=== PATIENT | male | born 1940 | race Caucasian/White ===

== ENCOUNTER 2017-01-09 08:15 | Inpatient (IN) ==
[2017-01-09] MEDS ORDERED: Nitroglycerin 0.4 MG TAB.SUBL SL ONE ×2 (08:24→11:46)
--- NOTE | 2017-01-09 08:27 | Emergency Department Note ---
Disposition Clinical Impression: Chest pain Qualifiers: Chest pain type: unspecified Qualified Code(s): R07.9 - Chest pain, unspecified Disposition: Admitted As Inpatient Condition: Critical Time of Disposition: 09:59 Chest Pain HPI - General Chief Complaint: ED Chest Pain Stated Complaint: Chest pain Time Seen by Provider: 01/09/17 08:18 Source: patient, family, EMS Mode of arrival: EMS Vital Signs Reviewed: Yes Nursing Notes Reviewed: Yes - History of Present Illness HPI Narrative: Mr. Moses, a 76yo male, presents from home via EMS with chief complaint chest pain. Onset this morning at approximately 1 AM described as 10 out of 10 substernal chest soreness without radiation, associated with diaphoresis. No nausea. Over the past 1-2 days, patient casually notes he had similar episodes that spontaneously resolved and, "did not last very long"-lasted approximately 15 minutes per episode. Previously, patient never experienced similar chest pain. Past medical history: hypertension, hyperlipidemia. No history of acid reflux. Family history: Mother had cardiac disease at age greater than 65. Medications: Aspirin 81 mg, statin, amlodipine Patient received 4 baby aspirin and a single sublingual nitroglycerin and round. His chest pain improved from 10/10 to 5/10. - Related Data Home Medications Medication Instructions Recorded Confirmed Aspirin [Lo-Dose Aspirin EC] 81 mg PO DAILY 01/09/17 01/09/17 Pravastatin Sodium 20 mg PO DAILY 01/09/17 01/09/17 amLODIPine [Norvasc] 5 mg PO DAILY 01/09/17 01/09/17 Allergies Allergy/AdvReac Type Severity Reaction Status Date / Time No Known Allergies Allergy Verified 01/09/17 08:32 All systems ED: reviewed and negative except as stated. Constitutional: Denies: fever, chills, weakness Eyes: Denies: vision change Cardiovascular: Reports: chest pain. Denies: palpitations, dyspnea on exertion , edema, syncope, paroxysmal nocturnal dyspnea Respiratory: Denies: cough, dyspnea, wheezes Gastrointestinal: Denies: abdominal pain, nausea, vomiting, diarrhea, constipation Genitourinary: Denies: urgency, dysuria Musculoskeletal: Denies: back pain, neck pain Neurological: Denies: headache, weakness, numbness Hematological/Lymphatic: Denies: easy bleeding, easy bruising Physical Exam Vital signs reviewed. Patient hypertensive. General: Patient is alert, oriented, and in mild to moderate distress. HEENT: No facial asymmetry. Head is normocephalic and atraumatic. PERRLA, EOMI. Cardiovascular: Heart regular rate and rhythm without clicks, rubs, gallops, or murmurs. No JVD. PMI nondisplaced. Chest pain is not reproducible palpation. Respiratory: Symmetric chest rise with good respiratory effort. Bilateral breath sounds are clear without wheezing, crackles, or rhonchi. Abdomen: Bowel sounds present normoactive x-4 quadrants. Abdomen is soft, nondistended, and nontender. No organomegaly noted. Psych: Patient's affect is appropriate for situation. Course Course Narrative: Patient received full dose of aspirin by EMS in route. We will repeat nitroglycerin trial and perform cardiac workup. Patient's EKG is concerning for ST depression in lead 2, LBBB. No previous EKG for comparison. Troponin elevated 0.06. CP improved with SL nitro - no CP free. Continuing to monitor; no morphine given at this time. Patient accepted by Dr. Junior who requests ER cardiology consult. Vital Signs Temperature 98.0 F 01/09/17 08:16 Pulse Rate 78 01/09/17 08:16 Respiratory Rate 18 01/09/17 08:16 Blood Pressure 196/109 01/09/17 08:16 O2 Sat by Pulse Oximetry 96 01/09/17 08:16 Temperature 98.0 F 01/09/17 08:16 Pulse Rate 53 01/09/17 09:15 Respiratory Rate 18 01/09/17 09:15 Blood Pressure 147/88 01/09/17 09:15 O2 Sat by Pulse Oximetry 96 01/09/17 09:15 Oxygen Delivery Oxygen Delivery Nasal Cannula Chest Pain - Lab Data Result diagrams: 01/09/17 08:45 01/09/17 08:45 Lab Results 01/09/17 01/09/17 01/09/17 Range/Units 08:45 08:45 08:45 WBC 8.6 (4.3-11.1) K/mcL RBC 5.33 (4.19-5.50) M/mcL Hgb 16.0 (12.9-16.9) g/dL Hct 48.4 (37.5-50.1) % MCV 90.8 (83.0-100.0) fL MCH 30.0 (28.0-33.3) pg MCHC 33.1 (31.6-35.5) g/dL RDW 13.2 (11.5-14.5) % Plt Count 250 (140-400) K/mcL MPV 9.3 L (9.4-12.4) fL Immature Gran % 0.4 (0-4) % Seg Neutrophils % 66.0 % Lymphocytes % 21.6 % Monocytes % 6.8 % Eosinophils % 4.3 % Basophils % 0.9 % Neutrophils # 5.7 (1.6-8.9) K/mcL Lymphocytes # 1.9 (0.6-4.6) K/mcL Monocytes # 0.6 (0.0-1.3) K/mcL Eosinophils # 0.4 (0.0-0.6) K/mcL Basophils # 0.1 (0.0-0.2) K/mcL PT (9.4-12.1) Seconds INR APTT (26.0-36.0) Seconds Sodium 143 (136-145) mEq/L Potassium 4.3 (3.5-4.5) mEq/L Chloride 110 H (98-109) mEq/L Carbon Dioxide 24 (19-29) mEq/L BUN 29 H (8-26) mg/dL Creatinine 1.45 H (0.72-1.25) mg/dL Est GFR ( Amer) 57 L (> 60) Est GFR (Non-Af Amer) 47 L (> 60) BUN/Creatinine Ratio 20 (6-26) Glucose 114 H (70-99) mg/dL Calculated Osmolality 303 H (280-300) Calcium 9.4 (8.6-10.8) mg/dL Troponin I 0.06 H* (0-0.03) ng/mL 01/09/17 Range/Units 08:45 WBC (4.3-11.1) K/mcL RBC (4.19-5.50) M/mcL Hgb (12.9-16.9) g/dL Hct (37.5-50.1) % MCV (83.0-100.0) fL MCH (28.0-33.3) pg MCHC (31.6-35.5) g/dL RDW (11.5-14.5) % Plt Count (140-400) K/mcL MPV (9.4-12.4) fL Immature Gran % (0-4) % Seg Neutrophils % % Lymphocytes % % Monocytes % % Eosinophils % % Basophils % % Neutrophils # (1.6-8.9) K/mcL Lymphocytes # (0.6-4.6) K/mcL Monocytes # (0.0-1.3) K/mcL Eosinophils # (0.0-0.6) K/mcL Basophils # (0.0-0.2) K/mcL PT 10.0 (9.4-12.1) Seconds INR 0.9 APTT 30.2 (26.0-36.0) Seconds Sodium (136-145) mEq/L Potassium (3.5-4.5) mEq/L Chloride (98-109) mEq/L Carbon Dioxide (19-29) mEq/L BUN (8-26) mg/dL Creatinine (0.72-1.25) mg/dL Est GFR ( Amer) (> 60) Est GFR (Non-Af Amer) (> 60) BUN/Creatinine Ratio (6-26) Glucose (70-99) mg/dL Calculated Osmolality (280-300) Calcium (8.6-10.8) mg/dL Troponin I (0-0.03) ng/mL - EKG Data EKG attestation: Yes I reviewed and interpreted this EKG. EKG results narrative: EKG dated 01/09/17 at 08:17 interpreted as sinus rhythm with a rate of 69. Prolonged ND interval at 240; first-degree AV block. QRS 104, QT/QTc 385/405. Left axis. Q waves present in V1, V2. ST elevation with T-wave inversion in V1 , V2. Nonspecific ST-T changes in V3. No previous EKG for comparison. Heart Score - Score History: Moderately Suspicious EKG: Non Specific repolarisation Disturbance Age: Greater than 65 Risk Factors: Equal/Greater than 3 risk factor or history of atherosclerotic disease Troponin: 1-3x normal limit HEART Score Total: 7 Attestation Statement - Attestation Attestation: I, Sly Fang, examined this patient and my medical decision-making was reviewed with the RENTAL COUNTER CLERK/PA/Advanced Practice Nurse/Resident Physician. I agree with the documented findings, disposition and treatment plan as described except to the extent set forth below. 76-year-old male presents with concerns of chest pain. Patient states pain started around 3 AM and was associated with diaphoresis. Patient denies palpitations, shortness of breath. His pain improved after administration of nitroglycerin and aspirin by EMS. He is now at 3 out of 10 pain, described as a pressure in the left central chest. Patient states he had similar pain 2 days ago. 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 Patient is treated for hypertension and hyperlipidemia and takes an 81 mg aspirin daily. EKG showed sinus rhythm with a rate of 64 with left bundle branch block without evidence of STEMI. No previous EKG for comparison. Chest x-ray did not reveal acute infiltrate or pneumothorax. At this time labs are pending however patient will be admitted to the hospital for further care and evaluation of acute chest pain to rule out ACS.
[2017-01-09 08:52] LABS: Basophils # 0.1 K/mcL (0.0-0.2); Basophils % 0.9 %; Eosinophils # 0.4 K/mcL (0.0-0.6); Eosinophils % 4.3 %; Hematocrit 48.4 % (37.5-50.1); Immature Granulocytes % 0.4 % (0-4); Lymphocytes # 1.9 K/mcL (0.6-4.6); Lymphocytes % 21.6 %; Mean Corpuscular HGB Conc 33.1 g/dL (31.6-35.5); Mean Corpuscular Volume 90.8 fL (83.0-100.0); Mean Platelet Volume 9.3 fL (9.4-12.4); Monocytes # 0.6 K/mcL (0.0-1.3); Monocytes % 6.8 %; Neutrophils # 5.7 K/mcL (1.6-8.9); Platelet Count 250 K/mcL (140-400); Red Blood Count 5.33 M/mcL (4.19-5.50); Red Cell Distribution Width 13.2 % (11.5-14.5)
[2017-01-09 09:04] LABS: Calcium 9.4 mg/dL (8.6-10.8); Potassium 4.3 mEq/L (3.5-4.5)
[2017-01-09 09:08] LABS: INR 0.9
[2017-01-09 09:11] LABS: Activated Partial Thrombo Time 30.2 Seconds (26.0-36.0)
[2017-01-09] MEDS ORDERED: Acetaminophen 325 MG TABLET PO PRN (10:35)
[2017-01-09] MEDS ORDERED: Naloxone 0.4 MG/ML INJ IVP PRN (10:35)
--- NOTE | 2017-01-09 10:49 | Internal Med History&Physical ---
Date of Encounter: 01/09/17 Time of Encounter: 10:00 Assessment and Plan (1) Chest pain Current visit: Yes Status: Acute With mild elevation in troponin some subtle EKG changes. Please patient hospital for observation. Trend troponins. Telemetry. Repeat EKG in the morning. I am for cardiac stress test in the morning. Cardiology consult. Qualifiers: Chest pain type: precordial pain Qualified Code(s): R07.2 - Precordial pain (2) Essential hypertension Current visit: Yes Status: Chronic Monitor blood pressure. Resume home medications. (3) Abnormal chest x-ray Current visit: Yes Status: Acute Patient has an abnormal finding in the chest x-ray with presence of bullae in the left apex. Also increased interstitial markings. Recommend CT scan of the chest. Will plan for CT scan of the chest without IV contrast at this time given patient's renal dysfunction. (4) Hyperlipidemia Current visit: Yes Status: Chronic Will check lipid profile. Continue statin. Qualifiers: Hyperlipidemia type: mixed hyperlipidemia Qualified Code(s): E78.2 - Mixed hyperlipidemia (5) Acute kidney injury Current visit: Yes Status: Acute Abnormal renal function. No baseline available. We will follow renal function. Hold naproxen. Internal Medicine - H&P: HPI Chief complaint: Chest pain Admitted From: Emergency Dept Plans for Post Hospital Care: Home History of present illness: Mr. Moses is a 76 year old male patient with a history of hypertension, hyperlipidemia who is traveling from [place] presented to the ER with complaints of chest pain. He had an initial episode of chest pain 2 days back that lasted for a few minutes and spontaneously resolved. The pain returned last night and lasted a little longer. It then returned early this morning and was much more severe and according to his he rated the pain at 10 out of 10 in severity. The pain is located on the left side of his chest and is nonradiating. No relation to activity. The pain started to improve after he got 2 nitroglycerin and aspirin. Patient has been fairly healthy. He says he had similar kind of chest pain several years back and at that time underwent a cardiac catheterization and atherectomy without any placement of stents. He denies any shortness of breath cough or sputum production. No palpitations. Past Med Surg Social Fam HX - Past Medical History Attestation: Yes The following information was validated with the patient. Source: patient Medical history: hyperlipidemia, hypertension - Social History Smoking Status: Light tobacco smoker Alcohol use: occasionally Drug use: none - Additional Family History Additional family history: Reviewed and found to be noncontributory at this time Internal Medicine - H&P: Meds Aspirin [Lo-Dose Aspirin EC] 81 mg PO DAILY 01/09/17 [History] Glucosamine/D3/Boswellia Randa [Osteo Bi-Flex Tablet] 1 tab PO DAILY 01/09/17 [ History] Multivits,Ca,Min/Iron/FA/Lycop [Centrum Men's Tablet] 1 tab PO DAILY 01/09/17 [ History] Naproxen Sodium [Aleve] 220 mg PO BID PRN 01/09/17 [History] [place]-3S/Dha/Epa/Fish Oil [Fish Oil [place]-3 Softgel] 1 cap PO DAILY 01/09/17 [ History] Pravastatin Sodium [Pravachol] 40 mg PO DAILY 01/09/17 [History] amLODIPine [Norvasc] 5 mg PO DAILY 01/09/17 [History] Allergies Penicillins Allergy (Unknown, Verified 01/09/17 10:22) See Comments Patient has never taken penicillin- Patient has avoided this medication because all family members have an anaphylactic reaction- All Systems PM: A 10-system review of systems was performed and is negative for pertinent findings except as documented above in the HPI. - Constitutional Constitutional: no chills, no fever(s), no night sweats - EENT Eyes: no change in vision, no discharge, no pain, no photophobia Ears: no ear discharge, no ear pain, no tinnitus Nose, mouth and throat: no dysphagia, no nasal discharge, no neck pain, no sore throat - Cardiovascular Cardiovascular ROS IM: chest pain, no diaphoresis, no dyspnea, no lightheadedness, no palpitations, no syncope - Respiratory Respiratory: no cough, no dyspnea, no wheezing, no excessive phlegm production - Gastrointestinal Gastrointestinal: no abdominal pain, no diarrhea, no hematemesis, no hematochezia, no melena, no nausea, no vomiting - Musculoskeletal Musculoskeletal ROS IM: no numbness, no tingling - Integumentary Integumentary IM: no rash, no unusual bruising - Neurological Neurological ROS: no confusion, no convulsions, no focal weakness, no numbness, no tingling, no tremor(s) - Constitutional Vitals: Temp Pulse Resp BP Pulse Ox 97.7 F 53 16 171/91 95 01/09/17 10:37 01/09/17 10:37 01/09/17 10:37 01/09/17 10:39 01/09/17 10:37 General appearance: Present: cooperative, mild distress, A&O X 3, answers questions appropriately - Neck Neck exam general surgery: Present: supple, trachea midline. Absent: lymphadenopathy - Respiratory Respiratory exam: Present: CTAB. Absent: accessory muscle use, rales, rhonchi, wheezes - Cardiovascular Cardiovascular exam: Present: RRR, +S1, +S2. Absent: diastolic murmur, gallop, rubs, systolic murmur - GI/Abdominal GI/Abdominal exam: Present: normal bowel sounds, soft, no peritoneal signs. Absent: distended, tenderness - Extremities Exam Extremities exam: Present: warm, radial pulses palpable and symetrical. Absent : calf tenderness, cyanotic, pedal edema - Neurological Exam Neurological exam: Present: alert, oriented X3, no focal deficits. Absent: facial droop, speech deficit - Skin Skin exam: Present: dry, intact Internal Med - H&P Results - Labs CBC & Chem 7: 01/09/17 08:45 01/09/17 08:45 - EKG Data -: EKG Interpreted by Myself EKG shows normal: sinus rhythm - EKG Data EKG comments: 01/09/17 10:[address] elevation in V1, V2. No prior EKG to compare - Impressions Impressions Chest X-Ray 01/09/17 08:24 IMPRESSION: Mild interstitial lung disease of indeterminate age but suspicious for pulmonary edema in the acute setting with the provided history. Indeterminate opacity of the left lung apex, which may be due to scarring and bullous lung disease although a neoplastic etiology cannot be excluded. Recommend further evaluation with a CT of the chest. D/ / Carlos Goyal MD / Carlos Goyal MD Interpreting Provider: Carlos Goyal MD - Attending Attestation This document has been at least partially created by [employer] recognition technology by Dr. Junior. Errors in grammar, wording or other phrases may exist. If errors are found after the documentation is signed, they will be addressed individually in the addendum section of this document when appropriate.
[2017-01-09] MEDS ORDERED: Nitroglycerin 0.4 MG TAB.SUBL SL PRN (12:00)
[2017-01-09] MEDS ORDERED: *HR* Heparin 5,000 UNIT/ML VIAL IVP PRN ×2 (12:01)
[2017-01-09] MEDS ORDERED: *HR* Heparin 5,000 UNIT/ML VIAL IVP ONE (12:01)
--- NOTE | 2017-01-09 12:09 | Cardiology Consult Note ---
Date of Encounter: 01/09/17 Time of Encounter: 11:30 Assessment and Plan (1) Chest pain Current Visit: Yes Status: Acute Presented with mid-sternal chest pain this AM. Initial troponin 0.06, with ST/T changes noted per ECG. Reports "mild" chest pain during examination--NTG ordered. Will continue to trend troponin. Start IV heparin gtt. Will also start IVF given renal insufficiency, SCr 1.45, no baseline. No betablocker due to bradycardia; HR in the 50's upon exam. Continue asa and statin. Recommend LHC with possible PCI; patient agreeable. Will discuss with Dr. Rosa Sotelo. Of note, left upper lobe lateral apex 3.9 cm mass like density suspicious for malignancy noted on CT scan. Agree with echocardiogram. Qualifiers: Chest pain type: precordial pain Qualified Code(s): R07.2 - Precordial pain (2) Essential hypertension Current Visit: Yes Status: Chronic Blood pressure uncontrolled, resume amlodipine now. (3) Hyperlipidemia Current Visit: Yes Status: Chronic Continue statin. Qualifiers: Hyperlipidemia type: mixed hyperlipidemia Qualified Code(s): E78.2 - Mixed hyperlipidemia Discussion w patient/family: The assessment and plan as outlined above was discussed with the patient and/or family members who expressed understanding and agreement. All questions were answered. Thank you for involving us in the care of your patient. Please call with any questions. The patient will be discussed and reviewed with Dr. Rosa Sotelo; changes to be made accordingly. History of Present Illness Consult date: 01/09/17 Requesting physician: Ty Junior Consult reason: Chest pain Chief complaint: Chest pain History of present illness: Mr. Moses is a 76 year old male with PMH significant for heavy tobacco use, CAD s/p arthrectomy "20 years ago," HTN, and HLD who presented to the ED this AM after an episode of chest pain that woke up from sleep. Pain was described as mid-sternal chest tightness that lasted for several hours until he was given NTG tab in the ED. Associated symptoms include diaphoresis. States he had a similar episode, "mild," 3-4 days ago. Past Med Surg Social Fam HX - Past Medical History Attestation: Yes The following information was validated with the patient. Source: patient, obtained from family Medical history: coronary artery disease, hyperlipidemia, hypertension - Past Surgical History Surgical History: angioplasty/stent (remote, +20 years ago. ) - Social History Smoking Status: Current every day smoker Packs per day: 3 cigars/day, former >1ppd. Smokeless Tobacco Status: No Alcohol use: occasionally Drug use: none Current living situation: Home - Independent Activity Level: Independent ambulation Recent Out of Country Travel Within the Last 8 Weeks: No Medications and Allergies Aspirin [Lo-Dose Aspirin EC] 81 mg PO DAILY 01/09/17 [History] Glucosamine/D3/Boswellia Randa [Osteo Bi-Flex Tablet] 1 tab PO DAILY 01/09/17 [ History] Multivits,Ca,Min/Iron/FA/Lycop [Centrum Men's Tablet] 1 tab PO DAILY 01/09/17 [ History] Naproxen Sodium [Aleve] 220 mg PO BID PRN 01/09/17 [History] [place]-3S/Dha/Epa/Fish Oil [Fish Oil [place]-3 Softgel] 1 cap PO DAILY 01/09/17 [ History] Pravastatin Sodium [Pravachol] 40 mg PO DAILY 01/09/17 [History] amLODIPine [Norvasc] 5 mg PO DAILY 01/09/17 [History] Allergies Penicillins Allergy (Unknown, Verified 01/09/17 10:22) See Comments Patient has never taken penicillin- Patient has avoided this medication because all family members have an anaphylactic reaction- All Systems Review: A 10-system review of systems was performed and is negative for pertinent findings except as documented above in the HPI. - Cardiovascular Cardiovascular: as per HPI Physical Examination Vital Signs, Last 4 Hours Temp Pulse Resp BP Pulse Ox 01/09/17 10:39 171/91 01/09/17 10:37 97.7 F 53 16 170/91 95 01/09/17 10:33 98 01/09/17 10:28 97.7 F 53 16 170/91 95 01/09/17 10:04 18 146/91 General: Conversant, No Apparent Distress HEENT: Atraumatic, Normocephaly, Mucus Membranes Moist Cardiac: Reg Rate and Rhythm, Normal S1 and S2 Lungs: Normal Breath Sounds Neuro: Alert and responsive Abdomen: Soft Skin: No rashes noted on visualized skin Musculoskeletal: No Chest Wall Tenderness Extremities: No Edema, Normal Pulses Results 01/09/17 08:45 01/09/17 08:45 Active Medications Acetaminophen (Tylenol) 650 mg PO Q6HR PRN PRN Reason: Mild Pain (1-3) Stop: 07/11/17 10:36 Amlodipine Besylate (Norvasc) 5 mg PO DAILY [facility] PRN Reason: Protocol Stop: 07/12/17 09:01 Aspirin (Aspirin Ec) 81 mg PO DAILY [facility] Stop: 07/12/17 09:01 Heparin Sodium (Porcine) (Heparin) 4,000 unit IVP Q6HR PRN PRN Reason: SEE COMMENTS Stop: 07/11/17 12:02 Heparin Sodium (Porcine) (Heparin) 2,000 unit IVP Q6H PRN PRN Reason: SEE COMMENTS Stop: 07/11/17 12:02 Sodium Chloride (0.9 % Sodium Chloride) 1,000 mls @ 100 mls/hr IVC .Q10H [facility] Stop: 01/09/17 18:16 Heparin Sodium/Dextrose (Heparin 25,000 Unit/500 Ml D5w) 25,000 unit in 500 mls @ 20 mls/hr IVC .Q24H [facility] PRN Reason: Protocol Stop: 07/11/17 12:16 Naloxone HCl (Narcan) 0.4 mg IVP Q2MIN PRN PRN Reason: Opioid Reversal Stop: 07/11/17 10:36 Nitroglycerin (Nitroglycerin) 0.4 mg SL Q5MIN PRN PRN Reason: Chest Pain Stop: 07/11/17 12:01 Pharmacy Profile Note (Patient Taking Own Medication) 1 each PO DAILY [facility] Stop: 07/12/17 09:01 Simvastatin (Zocor) 20 mg PO DAILY [facility] Stop: 07/12/17 09:01 - Imaging and Cardiology Other Results: 12 hour tele: avg HR=53 - EKG Interpretation EKG results cardiology: personally reviewed Consult Discharge Plan - Plan Referrals: NO,PCP [Primary Care Provider] - (Patient follows up with PCP in [facility])
[2017-01-09] MEDS ORDERED: Heparin 25,000 UNIT/500 ML D5W 25,000 UNIT/500 ML MLS IVC SCH (12:15)
[2017-01-09] MEDS ORDERED: 0.9 % Sodium Chloride 1,000 ML IVC SCH ×2 (12:15→16:30)
[2017-01-09] MEDS ORDERED: Perflutren Lipid Microsphere 1.3 ML in 0.9 % Sodium Chloride 8.7 ML IVP ONE (12:59)
[2017-01-09] MEDS ORDERED: Perflutren Lipid Microsphere 2 ML VIAL ONE (13:01)
[2017-01-09] MEDS ORDERED: *HR* Heparin 10,000 UNIT/10 ML VIAL ONE (13:44)
[2017-01-09] MEDS ORDERED: Nitroglycerin 1,000 MCG/10 ML VIAL IV ONE (13:44)
[2017-01-09] MEDS ORDERED: Heparin 1,000 UNITS/500 mL NS 500 ML ONE (13:44)
[2017-01-09] MEDS ORDERED: 0.9 % Sodium Chloride 1,000 ML ONE ×2 (13:44→13:56)
--- NOTE | 2017-01-09 13:54 | Pre-Sedation Evaluation ---
Pre-sedation evaluation - Pre-sedation checklist Date of procedure: 01/09/17 Procedure: [facility] Recent Vitals: Last Vital Signs Temp 97.7 F 01/09/17 10:37 Pulse 53 01/09/17 10:37 Resp 16 01/09/17 10:37 BP 171/91 01/09/17 10:39 Pulse Ox 95 01/09/17 10:37 H&P (including ROS) documented in medical record: Yes Previous reaction to sedatives/anesthetics: No Dietary Status: NPO after Midnight Airway Assessment: Patient can open mouth completely, TMJ function normal, Micrognathia (under-bite, receding chin) absent, Neck with adequate range of motion Dentition: full dentition Possible difficult airway: No ASA Classification *see protocol: CLASS II-Mild systemic disease Plan of Care: Pt appropriate candidate for procedure/moderate/conscious sedation , Risks/benefits of procedure/sedation discussed w/ patient/family
[2017-01-09] MEDS ORDERED: *HR* FentaNYL (PF) 100 MCG/2 ML VIAL ONE (14:10)
[2017-01-09] MEDS ORDERED: *HR* Midazolam HCl 2 MG/2 ML VIAL ONE (14:10)
[2017-01-09] MEDS ORDERED: *HR* Ticagrelor 90 MG TABLET ONE (15:10)
--- NOTE | 2017-01-09 16:03 | Invasive Diagnostic Lab Proc ---
Name: Toni Moses Date of Study: 01/09/2017 Date: 1940 Ht: 72.0in Medical Record#: [id number] Age: 76 Wt: 193.12lb Gender: Male BSA: 2.1 Order #: [id number] BMI: 26.16 Physicians Procedure Physician: Rosa Sotelo MD, [facility] Referring MD: Referring MD: Staff Name [facility] RN Scrub 02:18 PM Brittaney Menjivar RN Monitor 02:18 PM Haritha Bain RN Vocational Trainer 02:18 PM Indications Indication Unstable Angina Procedures Performed Procedure L HRT ARTERY/VENTRICLE ANGIO PRQ CARD AYANNA STENT W/ANGIO 1 VSL Pre-Procedure Checklist Informed consent is complete signed and on chart. H\\T\\P is on chart. ID band is on and ID verified with patient. Patient NPO for procedure The procedure was described for the patient and questions were answered. ECG is on chart. Plan of Care Patient will tolerate the procedure without complications. Adequate level of comfort will be maintained. Hemodynamics will remain stable Patient will recover from procedure without complications. Respiratory function will be maintained. Cardiac rhythm will remain stable. Patient temperature will be maintained. Patient and/or family have verbalized understanding of the procedure. Patient Education Intravenous Access Time IV Size Location DC'd Fluid/Drip Rate Units RN 18g 1 09/02" Patent On Arrival Lt Antecubital 0.9NaCl 25 ml/hr Allergies Penicillins Vital Signs Time BP (mmHg) HR (bpm) O2 Sat. RR (bpm) LOC 02:19 PM / % 5 = Fully awake and oriented or at pre-proc level 02:19 PM / % 4 = Oriented but drowsy 02:34 PM / % 4 = Oriented but drowsy 02:22 PM 192 / 107 64 99 % 02:27 PM 159 / 99 60 95 % 16 02:33 PM 142 / 84 47 97 % 02:37 PM 149 / 83 47 97 % 02:42 PM 155 / 88 54 97 % 26 02:47 PM 157 / 86 56 98 % 02:52 PM 167 / 96 57 100 % 17 02:57 PM 170 / 90 55 99 % 15 03:02 PM 171 / 104 81 96 % 5 03:07 PM 153 / 90 56 98 % 21 03:12 PM 166 / 98 53 96 % Procedural Medications Time Medication Dose Units Method Given By 02:19 PM Oxygen 2 L/min nasal cannula Haritha Bain RN 02:23 PM Versed 2 mg Intravenous Haritha Bain RN 02:23 PM Fentanyl 50 mcg Intravenous Haritha Bain RN 02:32 PM Lidocaine 2% 16 ml Subcutaneous Rosa Sotelo MD, FAC 02:48 PM Benadryl 25 mg Intravenous Haritha Bain RN 02:49 PM Heparin 3000 units Intravenous Haritha Bain RN 03:00 PM Nitroglycerin 200 mcg Intracoronary Rosa Sotelo MD, FACC 03:07 PM Nitroglycerin 200 mcg Intracoronary Rosa Sotelo MD, FACC 03:17 PM Brilinta 180 mg Orally Haritha Bain RN 03:21 PM Hydralazine 10 mg Intravenous Haritha Bain RN ASA Classification: CLASS II- Mild systemic disease (i.e. well-controlled diabetes, hypertension, asthma, cigarette smoking) Ana Paula Score Preprocedure Postprocedure Activity 2- Moves 4 extremities sustained head lift Activity 2- Moves 4 extremities sustained head lift Circulation 2- SBP +/= 20 points of pre-anesthetic level Circulation 2- SBP +/= 20 points of pre-anesthetic level Consciousness 2- Awake and alert oriented x 3 Consciousness 2- Awake and alert oriented x 3 O2 Saturation 2- Able to maintain O2 satruation of 92% on room air O2 Saturation 2- Able to maintain O2 satruation of 92% on room air Respiratory 2- Able to deep breathe and cough well Respiratory 2- Able to deep breathe and cough well Total Score 10 Total Score 10 Contrast Agent: Isovue Diagnostic Contrast: 179 ml Total Contrast: 179 ml Fluoro Dose: 881 mGy Activated Clotting Time Time Seconds to Clot 02:48 PM 177 03:04 PM 327 03:16 PM 250 Procedure Log Time Note Enter By 02:17 PM Case Start 02:17 PM CathStat 02:18 PM Pt arrived to qc lab technician 2 at 14:18 [email or web address] 02:18 PM Rishi De León RN Position: Scrub Time in: 14:18 [email or web address] 02:18 PM Brittaney Menjivar RN Position: Monitor Time in: 14:18 [email or web address] 02:18 PM Haritha Bain RN Position: Vocational Trainer Time in: 14:18 [email or web address] 02:18 PM Patient charges- Angio tray pack, Navilyst 3mm J, Pulse Oximetry and ACIST tubing and transducer [email or web address] 02:18 PM Case Delayed No [email or web address] 02:18 PM Hair removed from procedure site in procedure lab using clippers. Bilateral groin prepped with Chloraprep by Brittaney Menjivar RN, safety strap applied then patient was draped. Skin intact. [email or web address] 02:19 PM Physician arrived 14:18 [email or web address] 02:19 PM ASA Class CLASS II- Mild systemic disease (i.e. well-controlled diabetes, hypertension, asthma, cigarette smoking) [email or web address] 02:19 PM Meet and greet completed [email or web address] 02:19 PM Sign in performed according to hospital policy. [email or web address] 02:19 PM Procedure start 14:19 [email or web address] : PM Time: 14:19 Oxygen on at 2 L/min per nasal cannula by Haritha Bain RN [email or web address] 02: PM Time: 14:19 Patient comfortable and pain free: Yes [email or web address] : PM Time: 14:19LOC: 5 = Fully awake and oriented or at pre-proc level [email or web address] 02:19 PM Clinical Presentation: Non-STEMI [email or web address] 02:21 PM Vitals capture started with the following parameters, Patient=Adult, Interval=5 min, Initial Jlrxbhsb=185 mmHg, Deflation Rate=5 mmHg, Cuff placed on Left Arm 02: PM Recorded ECG: HR=64 Condition=Condition 1 02:22 PM HR=64 bpm, RCZE=751/107 mmhg, SpO2=99.0 %, Comment=SR 02:23 PM Time: 14: Versed 2 mg Intravenous Given by Haritha Bain RN [email or web address] 02:23 PM Time: 14:23 Fentanyl 50 mcg Intravenous Given by Haritha Bain RN [email or web address] 02:27 PM HR=60 bpm, VWKG=440/99 mmhg, SpO2=95.0 %, Resp=16 B/min, Comment=SR 02:30 PM Pressure channel 1 zeroed. 02:32 PM Time out performed according to hospital policy [email or web address] 02:33 PM HR=47 bpm, AASA=297/84 mmhg, SpO2=97.0 %, Comment=SR 02:33 PM Time: 14:32 16 ml Lidocaine 2% to right groin Subcutaneous Given by Rosa Sotelo MD, [facility] [email or web address] 02:34 PM Time: 14:19LOC: 4 = Oriented but drowsy [email or web address] 02:34 PM Time: 14:19 Patient comfortable and pain free: Yes [email or web address] 02:37 PM HR=47 bpm, HYSM=092/83 mmhg, SpO2=97.0 %, Comment=SR 02:38 PM Access obtained by percutaneous puncture. 5Fr 10cm Terumo [place] sheath placed in right Femoral artery. [id number] [email or web address] 02:39 PM 5Fr FR 4 catheter inserted over the wire DN [email or web address] 02:39 PM 0.035 145cm Navilyst 3mmJ wire [id number] [email or web address] 02:40 PM Recorded Pressure: Ao, HR=51, Condition=Condition 1 (Aorta) Ao 139/80/105 02:41 PM RCA angiography performed in multiple views. [email or web address] 02:41 PM Catheter removed [email or web address] 02:41 PM Wire removed [email or web address] 02:41 PM 5Fr FL 4 catheter inserted over the wire DN [email or web address] 02:41 PM 0.035 260cm Navilyst 3mmJ wire [id number] [email or web address] 02:42 PM HR=54 bpm, CXJI=180/88 mmhg, SpO2=97.0 %, Resp=26 B/min, Comment=SR 02:43 PM LCA angiography performed in multiple views. [email or web address] 02:43 PM Recorded Pressure: Ao, HR=55, Condition=Condition 1 (Aorta) Ao 138/76/102 02:45 PM Catheter removed [email or web address] 02:46 PM Sheath exchanged for a 6 Fr 11 cm Cordis Janice sheath [id number] [email or web address] 02:46 PM PCI Status Urgent [email or web address] 02:46 PM PCI Indication: PCI for high risk Non-STEMI or unstable angina [email or web address] 02:47 PM HR=56 bpm, OWIR=345/86 mmhg, SpO2=98.0 %, Comment=SR 02:47 PM 6Fr XB LAD 3.5 Cordis guide catheter was used to cannulate the PCI vessel successfully. reused? No [email or web address] 02:47 PM .014 Prowater 180cm guide wire across target lesion- successful. reused? No [email or web address] 02:47 PM Inflation device was opened. [email or web address] 02:47 PM 2.0 mm x 15 mm Emerge Monorail balloon across target lesion- successful. reused? No [email or web address] 02:48 PM At 14:48 the ACT was 177 seconds. [email or web address] 02:48 PM Time: 14:48 Benadryl 25 mg Intravenous Given by Haritha Bain RN [email or web address] 02:49 PM Time: 14:49 Heparin 3000 units Intravenous Given by Haritha Bain RN Correia pump [email or web address] 02:49 PM PCI lesion in Proximal LAD. Pre Stenosis: 100 Pre YONI Flow: [email or web address] 02:49 PM Time: 14:34 Patient comfortable and pain free: Yes [email or web address] 02:49 PM Time: 14:34LOC: 4 = Oriented but drowsy [email or web address] 02:52 PM physician reshaping wire [email or web address] 02:52 PM HR=57 bpm, JSTR=262/96 mmhg, MhT9=440.0 %, Resp=17 B/min, Comment=SR 02:56 PM Balloon inflated @ 10 ángel for 20 seconds [email or web address] 02:57 PM HR=55 bpm, OBJW=001/90 mmhg, SpO2=99.0 %, Resp=15 B/min, Comment=SR 03:00 PM Time: 15:00 Nitroglycerin 200 mcg Intracoronary Given by Rosa Sotelo MD, [facility] [email or web address] 03:01 PM Proximal Left Anterior Descending Coronary Artery with 100% stenosis. If graft is supplying this territory, 0 % stenosis. [email or web address] 03:02 PM HR=81 bpm, UINA=446/104 mmhg, SpO2=96.0 %, Resp=5 B/min, Comment=SR 03:04 PM 2.5mm x 38mm Synergy bioabsorbable stent across target lesion- successful Lot #[id number] [email or web address] 03:04 PM Stent deployed @ 12 ángel for 30 seconds [email or web address] 03:04 PM At 15:04 the ACT was 327 seconds. [email or web address] 03:05 PM Stent balloon reinflated @ 18 ángel for 20 seconds [email or web address] 03:07 PM Time: 15:07 Nitroglycerin 200 mcg Intracoronary Given by Rosa Sotelo MD, [facility] [email or web address] 03:07 PM HR=56 bpm, YTVC=039/90 mmhg, SpO2=98.0 %, Resp=21 B/min, Comment=SR 03:09 PM Stent delivery system removed intact. [email or web address] 03:09 PM Guide catheter removed intact. [email or web address] 03:09 PM Guide wire removed intact. [email or web address] 03:10 PM 5Fr Pigtail catheter inserted over the wire [facility] [email or web address] 03:10 PM Catheter selectively placed in left ventricle [email or web address] 03:11 PM Pressure channel 1 zeroed. 03:11 PM Recorded Pressure: LV, HR=97, Condition=Condition 1 (Left Ventricle) LV 115/37/16 03:11 PM Bolus angiogram of left Ventricle complete: 8 ml/sec for a total of 24 mls [email or web address] 03:12 PM Recorded Pressure: LV, Ao, HR=58, Condition=Condition 1 (Left Ventricle) LV 153/3/31, (Aorta) Ao 153/90/117 03:12 PM HR=53 bpm, SWDM=660/98 mmhg, SpO2=96 % 03:12 PM Catheter removed [email or web address] 03:12 PM Wire removed [email or web address] 03:13 PM Bolus angiogram of left Femoral complete: 4 ml/sec for a total of 7 mls [email or web address] 03:16 PM At 15:16 the ACT was 250 seconds. [email or web address] 03:18 PM Time: 15:17 Brilinta 180 mg Orally Given by Haritha Bain RN [email or web address] 03:21 PM Time: 15:21 Hydralazine 10 mg Intravenous Given by Haritha Bain [email or web address] 03:26 PM Lesion found in Proximal RCA. Pre Stenosis: 50 Pre YONI Flow: [email or web address] 03:26 PM Lesion found in Mid RCA. Pre Stenosis: 50 Pre YONI Flow: [email or web address] 03:26 PM Lesion found in LMCA. Pre Stenosis: 40 Pre YONI Flow: [email or web address] 03:26 PM Lesion found in 1st Diagonal. Pre Stenosis: 40 Pre YONI Flow: [email or web address] 03:26 PM Lesion found in Proximal Circumflex. Pre Stenosis: 20 Pre YONI Flow: [email or web address] 03:26 PM Lesion found in Ramus. Pre Stenosis: 30 Pre YONI Flow: [email or web address] 03:26 PM Left Main Coronary Artery with 40% stenosis [email or web address] 03:27 PM Lesion found in Proximal LAD. Pre Stenosis: 60 Pre YONI Flow: [email or web address] 03:27 PM Mid/Distal Left Anterior Descending Coronary Artery and diagonal branches with 40% stenosis. If graft is supplying this area, 0 % stenosis [email or web address] 03:27 PM Circumflex, Obtuse Marginal, Left Posterior Descending, and Left Posterolateral Coronary Arteries with 20 % stenosis. If graft is supplying this area, 0 % stenosis [email or web address] 03:27 PM Right Coronary, Right Posterior Descending Arteries with Right Posterolateral and Acute Marginal branches with 50 % stenosis. If graft is supplying this area, 0 % stenosis [email or web address] 03:27 PM Ramus with 30% stenosis. If graft is supplying this area, 0 % stenosis [email or web address] 03:28 PM Procedure completed at 15:28 [email or web address] 03:29 PM Sign out completed: Radiation Dose 881.13 mGy Fluoro Time: 9 Isovue 370 - 200ml contrast 179 ml given by Rosa Sotelo MD, [facility]. Complications: NoneCardiac Rehab Consult needed: YesConfirmed administered medications: Yes [email or web address] 03:29 PM Isovue 370 - 200ml,1 Bottle(s) used. [email or web address] 03:30 PM Post ECG NSR [email or web address] 03:30 PM Post Blood Pressure 166/98 [email or web address] 03:30 PM Information taught Cardiac Cath and PCI [email or web address] 03:30 PM Education needs Procedure, Plan of Care, and Responsibilities of Patient in Care [email or web address] 03:30 PM Education Methods Verbal [email or web address] 03:30 PM Education evaluation Able to repeat information [email or web address] 03:31 PM Family placed in consult room. [email or web address] 03:32 PM severe calcification noted in right femoral artery, sheath to be pulled prior to sending patient to floor, by manager labor delivery staff [email or web address] 03:39 PM 15:39 Post Pulses Rt DP Doppler [email or web address] 03:39 PM 15:39 Post Pulses Rt PT Doppler [email or web address] 03:48 PM Site status No bleeding/hematoma - Rt Groin as reported by Rishi De León RN at 15:56 [email or web address] 03:48 PM Arterial sheath pulled, Femstop closure device used and was Successful S/N. [email or web address] 03:48 PM Arterial site held using manual compression and V+ Pad for 10 minutes by Rishi De León RN [email or web address] 03:56 PM Opsite applied [email or web address] 03:56 PM Report given to Pamela HERCULES Pt taken to 2N Room #14. 15:56 [email or web address] 03:56 PM Patient out of room: 15:56 [email or web address] Complications Complication None Hemodynamics Pressures Site Systolic/A Wave Diastolic/V Wave Mean AO 139 80 105 AO 138 76 102 LV 115 37 16 LV 153 3 31 AO 153 90 117 Post Procedure Information Blood Pressure: 166/98 mmHg Rhythm: NSR Post procedural instructions were given Site Checks Time Location Status Staff Sheath In? Note 03:56 PM Rt Groin No bleeding/hematoma Rishi De León RN Pulses Time Site Pre-Procedure Post-Procedure Note 3:39:00 PM Rt DP Doppler 3:39:00 PM Rt PT Doppler Updated by Brittaney Menjivar RN on 01/09/2017 3:56:30 PM electronically signed on 01/09/2017 3:57:20 PM with status of Final
[2017-01-09] MEDS ORDERED: Ondansetron 4 MG/2 ML VIAL IVP PRN (16:21)
--- NOTE | 2017-01-09 17:32 | ECHO - Doppler Report ---
Echo with Imaging Enhancement Agent Name: Toni Moses Date of Study: 01/09/2017 Date: 1940 Ht: 72.0 in Medical Record#: [id number] Age: 76 Wt: 193.0 lb Gender: Male BSA: 2.1 Order #: [id number] Location: [facility] Room #: [id number] Reading Physician: Josef Finch DO, FACC, HIREN Stitch Cleaner: FABIANO CortésT, [facility] Ordering Physician: Ty Junior MD Primary Physician: None Indications: Chest pain Impressions: LVEF 30%. Normal LV chamber size. Severe segmental left ventricular systolic dysfunction. Mild left ventricular diastolic dysfunction. Normal right ventricular structure and function. Mild tricuspid regurgitation. Moderate pulmonary hypertension. Estimated RVSP is 48 mmHg. Left Ventricular Wall Motion: Rest Echo Findings The apex, apical inferior, apical anterior, mid anterior, apical septal, mid inferior septal, apical lateral and mid anterior septal bustos were hypokinetic. All other wall segments showed normal motion. Findings: Study Quality * Technically adequate exam. ECG Findings * Sinus bradycardia. Left Ventricle * LVEF 30%. * Normal LV chamber size. * Severe segmental left ventricular systolic dysfunction. * Mild left ventricular diastolic dysfunction. Right Ventricle * Normal right ventricular structure and function. Left Atrium * Mildly dilated left atrium. Right Atrium * Mildly dilated right atrium. Interatrial Septum * Interatrial septum not well evaluated. Aortic Valve * Aortic valve not well visualized. * No aortic regurgitation. * No aortic stenosis. Mitral Valve * Normal mitral valve structure and function. * No mitral regurgitation. * No mitral stenosis. Tricuspid Valve * Normal tricuspid valve structure. * Mild tricuspid regurgitation. * Moderate pulmonary hypertension. * Estimated RVSP is 48 mmHg. * Estimated RA pressure is 5 mmHg. Pulmonic Valve * Pulmonic valve is not well visualized. * No pulmonic regurgitation. Aorta * Normally sized aortic root. Pericardium * The pericardium appears normal. IVC * Normal IVC dimensions and inspiratory collapse. Pulmonary Artery * Pulmonary artery not well visualized. History Hypertension Hypercholesteremia Contrast: Definity 1.3 ml in 8.7 ml of saline 3 ml. Measurements: BP: 171/ 91 2D Normal Values RVIDd: 3.00 cm <2.7 cm IVSd: 1.40 cm 0.6 - 1.0 cm LVIDd: 5.30 cm 3.7 - 5.6 cm LVPWd: 1.10 cm 0.6 - 1.1 cm LVIDs: 3.10 cm 1.5 - 3.6 cm AO: 3.40 cm < 4.0 cm LA: 3.60 cm 2.0 - 4.0cm %FS: 41.50 cm >25 % LA volume: 47 Mitral Valve Dec Time:532.00 msec Peak E:.55 m/sec Peak A:.65 m/sec E/A Ratio:0.8 Peak E' Lat Berhane:4.68 cm/s Peak E' Med Berhane:5.65 cm/s E/E' Lat Ratio:11.7 E/E' Med Ratio:9.7 Aortic Valve AI pressure Half-time: 500.00 msec Tricuspid Valve TV Regurg Peak Grad: 43.00mmHg TV Regurg Peak Berhane: 3.27m/sec Updated by Josef Finch DO, IRASEMA, RUBY MARADIAGA on 01/09/2017 5:25:55 PM electronically signed on 01/09/2017 5:26:41 PM with status of Final Wall Motion Nogueira: 1=Normal, 2=Hypokinesis, 3=Akinesis, 4=Dyskinesis, 5=Aneurysmal, 6=Hyperkinetic, X=Not Visualized (Blank)=Missing
--- NOTE | 2017-01-09 18:13 | Invasive Diagnostic Lab ---
Name: Toni Moses Date of Study: 01/09/2017 Date: 1940 Ht: 183.0 cm /72.0 in Medical Record#: [id number] Age: 76 Wt: 87.6 kg / 193.12 lb Account/Order#: [id number] Gender: Male BSA: 2.1 Order #: [id number] Fluoro Dose: 881 mGy BMI: 26.16 Procedure Physician: Rosa Sotelo MD, [facility] Referring MD: Referring MD: Procedures Performed: LEFT HEART CATH Stent w/ PTCA Single Major Vessel Indications: Non-Stemi Impressions: Single vessel coronary artery disease. There is severe LV Dysfunction EF 35% Patient had successful PTCA/Drug-Eluting Stent placement in the proximal LAD. Recommendations: Plavix (Clopidogrel) 75 mg PO Daily. Optimal medical therapy of patient's disease. Aggressive risk factor modification. History/Risk Factors: Hypertension Dyslipidemia Family History of CAD Procedure Access obtained in the right Femoral artery by percutaneous puncture Complications: None Contrast: Isovue 179ml Hemodynamics: Pressures Site Systolic/ A Wave Diastolic/ V Wave End Diastolic/ Mean HR AO 139 80 105 51 AO 138 76 102 55 LV 115 37 16 97 LV 153 3 31 63 AO 153 90 117 54 LV Ventriculography Ejection Method: LV Gram Ejection Fraction: 35% Wall Motion: JAIME Anterobasal Normal Anterolateral Severe Hypokinesis Apical: Severe Hypokinesis Inferoapical Severe Hypokinesis Inferobasal Normal Coronary Dominance: Lesion Findings/Interventions * Left Main Coronary Artery There is a 40% stenosis in the LMCA. The lesion has severely calcification noted. * Left Anterior Descending There is a 38 mm long, 100% stenosis in the Proximal LAD. The lesion has thrombus present. An intervention was performed on the Proximal LAD with a final stenosis of 0%. There were no lesion complications. The final YONI flow was 3. There is a 60% stenosis in the Proximal LAD. The lesion has severe calcification noted. There is a 40% stenosis in the 1st Diagonal. * Circumflex There is a 20% stenosis in the Proximal Circumflex. * Ramus There is a 30% stenosis in the Ramus. * Right Coronary Artery There is a 50% stenosis in the Proximal RCA. The lesion has moderate calcification noted. There is a 50% stenosis in the Mid RCA. The lesion has mild calcification noted. Interventional Device(s) Vessel Segment Type Name Diameter (mm) Length (mm) Proximal LAD Balloon Emerge Monorail 2 15 Proximal LAD Drug Eluting Stent Synergy 2.5 38 Updated by Rosa Sotelo MD, FACC on 01/09/2017 6:06:58 PM Rosa Sotelo MD, FACC electronically signed on 01/09/2017 6:07:52 PM with status of Final
[2017-01-09] MEDS: amLODIPine 5 MG TABLET PO SCH (18:41)
--- NOTE | 2017-01-10 03:32 | Event Note ---
Date of Encounter: 01/09/17 Time of Encounter: 21:00 Pt has elevated troponin to 30s. EKG at 6:50pm and 9pm shows T inversion through V3 to V6. Pt has no chest pain. I called and consulted Dr. Sotelo, pt's troponin and EKG change is expected after [facility], no further treatment at this point.
[2017-01-10 03:48] LABS: Basophils # 0.1 K/mcL (0.0-0.2); Basophils % 0.6 %; Eosinophils # 0.2 K/mcL (0.0-0.6); Eosinophils % 1.3 %; Hematocrit 46.5 % (37.5-50.1); Hemoglobin 15.4 g/dL (12.9-16.9); Immature Granulocytes % 0.4 % (0-4); Lymphocytes # 1.4 K/mcL (0.6-4.6); Lymphocytes % 12.3 %; Mean Corpuscular HGB Conc 33.1 g/dL (31.6-35.5); Mean Corpuscular Hemoglobin 29.7 pg (28.0-33.3); Mean Corpuscular Volume 89.8 fL (83.0-100.0); Mean Platelet Volume 9.3 fL (9.4-12.4); Monocytes # 0.6 K/mcL (0.0-1.3); Monocytes % 5.3 %; Neutrophils # 9.2 K/mcL (1.6-8.9); Platelet Count 270 K/mcL (140-400); Red Blood Count 5.18 M/mcL (4.19-5.50); Red Cell Distribution Width 13.3 % (11.5-14.5); Segmented Neutrophils % 80.1 %
[2017-01-10 03:58] LABS: Hemoglobin A1C 5.2 %
[2017-01-10 03:59] LABS: BUN/Creatinine Ratio 19 (6-26); Calcium 9.2 mg/dL (8.6-10.8); Carbon Dioxide 22 mEq/L (19-29); Chloride 109 mEq/L (98-109); Glucose 105 mg/dL (70-99); Osmolality,Calculated 292 (280-300); Potassium 3.7 mEq/L (3.5-4.5); Sodium 140 mEq/L (136-145); eGFR For African Americans > 60 (> 60); eGFR For Non-African Americans > 60 (> 60)
[2017-01-10 04:01] LABS: Blood Urea Nitrogen 18 mg/dL (8-26)
[2017-01-10 04:04] LABS: Chol/HDL Ratio 2.9 (0-4.9)
[2017-01-10 08:04] VITALS: BP 130/78
[2017-01-10] MEDS ORDERED: EPA PO SCH (09:00)
[2017-01-10] MEDS ORDERED: DHA PO SCH (09:00)
[2017-01-10] MEDS ORDERED: OMEGA PO SCH (09:00)
[2017-01-10] MEDS ORDERED: Aspirin Enteric Coated 81 MG Tablet PO SCH (09:00)
[2017-01-10] MEDS ORDERED: amLODIPine 5 MG TABLET PO SCH (09:00)
[2017-01-10] MEDS ORDERED: FISH OIL PO SCH (09:00)
[2017-01-10] MEDS: amLODIPine 5 MG TABLET PO SCH (09:28)
--- NOTE | 2017-01-10 09:33 | Cardiology Progress Note ---
Date of Encounter: 01/10/17 Time of Encounter: 08:30 Assessment and Plan (1) NSTEMI (non-ST elevated myocardial infarction) Current Visit: Yes Status: Acute Presented with mid-sternal chest pain this AM. Initial troponin 0.06, with ST/T changes noted per ECG. [facility] 01/09/17: s/p successful PTCA/AYANNA to pLAD; otherwise mild-moderate non- obstructive CAD. TTE 01/09/17: EF 30% with severe segmental LV systolic dysfunction, mild LVDD. Post PCI restrictions/education discussed including the importance of uninterrupted DAPT (asa + plavix) for at least 1 year. HR 50's upon exam (sinus), avg 53 overnight. Will stop betablocker--ideally, start as outpatient due to cardiomyopathy. Continue ACEi and statin. Appears euvolemic upon exam. Kidney function now normal. Patient resides in [place], in [place] visiting family. Recommend waiting at least 2 weeks prior to flight back to [place]. Recommend follow-up with local Technology Sales Specialist in 1-2 weeks. All questions and concerns were addressed, patient/ verbalized understanding of all information provided. (2) Essential hypertension Current Visit: Yes Status: Chronic Continue amlodipine and ACEi. (3) Hyperlipidemia Current Visit: Yes Status: Chronic Recommend high-intensity statin, Atorvastatin 80 mg daily. Qualifiers: Hyperlipidemia type: mixed hyperlipidemia Qualified Code(s): E78.2 - Mixed hyperlipidemia Discussion w patient/family: The assessment and plan as outlined above was discussed with the patient and/or family members who expressed understanding and agreement. All questions were answered. Thank you for involving us in the care of your patient. Please call with any questions. The patient will be discussed and reviewed with Dr. Rosa Sotelo; changes to be made accordingly. Subjective Principal diagnosis: NSTEMI Interval history: Seen and examined. He denies chest pain or discomfort; states has been pain free since PCI. He has no complaints this morning upon exam. Denies dyspnea, palpitations, or issues with right groin cath site. Objective Vital Signs, Last 4 Hours Temp Pulse Resp BP Pulse Ox 01/10/17 09:26 55 98 01/10/17 08:02 98.2 F 52 18 130/78 95 General: Conversant, No Apparent Distress HEENT: Atraumatic, Normocephaly, Mucus Membranes Moist Cardiac: Reg Rate and Rhythm (bradycardiac), Normal S1 and S2 Lungs: Normal Breath Sounds Neuro: Alert and responsive Abdomen: Soft Skin: No rashes noted on visualized skin Musculoskeletal: No Chest Wall Tenderness Extremities: No Edema, Normal Pulses Other: Right groin cath site: dressing clean, dry, and intact. No oozing, hematoma, or bleeding at site. +2 DP/PT pulses bilaterally. Results 01/10/17 03:23 01/10/17 03:23 Lab Results 01/09/17 01/10/17 01/10/17 20:17 03:23 03:23 WBC 11.5 H Hgb 15.4 Hct 46.5 Plt Count 270 Sodium 140 Potassium 3.7 Chloride 109 Carbon Dioxide 22 BUN 18 D Creatinine 0.95 Glucose 105 H Calcium 9.2 Troponin I 32.66 H* Active Medications Acetaminophen (Tylenol) 650 mg PO Q6HR PRN PRN Reason: Mild Pain (1-3) Stop: 07/11/17 10:36 Amlodipine Besylate (Norvasc) 5 mg PO DAILY YAMILE PRN Reason: Protocol Stop: 07/11/17 12:38 Last Admin: 01/10/17 09:28 Dose: 5 mg Aspirin (Aspirin Ec) 81 mg PO DAILY YAMILE Stop: 07/12/17 09:01 Last Admin: 01/10/17 09:28 Dose: 81 mg Atorvastatin Calcium (Lipitor) 80 mg PO HS YAMILE Stop: 07/11/17 21:01 Last Admin: 01/09/17 19:53 Dose: 80 mg Clopidogrel Bisulfate (Plavix) 75 mg PO DAILY YAMILE Stop: 07/12/17 09:01 Last Admin: 01/10/17 09:28 Dose: 75 mg Lisinopril (Zestril) 2.5 mg PO DAILY YAMILE PRN Reason: Protocol Stop: 07/12/17 09:01 Last Admin: 01/10/17 09:27 Dose: 2.5 mg Naloxone HCl (Narcan) 0.4 mg IVP Q2MIN PRN PRN Reason: Opioid Reversal Stop: 07/11/17 10:36 Nitroglycerin (Nitroglycerin) 0.4 mg SL Q5MIN PRN PRN Reason: Chest Pain Stop: 07/11/17 12:01 Last Admin: 01/09/17 11:30 Dose: 0.4 mg Ondansetron HCl (Zofran) 4 mg IVP Q6HR PRN; Protocol PRN Reason: Nausea And Vomiting Stop: 07/11/17 16:22 - Imaging and Cardiology Echo: report reviewed Cardiac cath: report reviewed Other Results: 12 hour tele: avg HR=53 SB. No significant pause or event. - EKG Interpretation EKG results cardiology: personally reviewed Consult Discharge Plan - Plan Referrals: NO,PCP [Primary Care Provider] - (Patient follows up with PCP in [facility])
--- NOTE | 2017-01-10 10:47 | Discharge Summary ---
Date of Encounter: 01/10/17 Time of Encounter: 10:41 - Discharge Diagnosis (1) NSTEMI (non-ST elevated myocardial infarction) Priority: Primary Status: Resolved (2) Acute kidney injury Priority: Primary Status: Acute (3) Essential hypertension Priority: Secondary Status: Chronic (4) Hyperlipidemia Priority: Secondary Status: Chronic Qualifiers: Hyperlipidemia type: mixed hyperlipidemia Qualified Code(s): E78.2 - Mixed hyperlipidemia - Discharge Medications Prescriptions: Nitroglycerin 0.4 mg SL Q5MIN PRN #10 tab.subl PRN Reason: Chest Pain amLODIPine [Norvasc] 5 mg PO DAILY #30 tablet Aspirin [Lo-Dose Aspirin EC] 81 mg PO DAILY #30 tablet. Atorvastatin [Lipitor] 80 mg PO HS #60 tablet Clopidogrel [Plavix] 75 mg PO DAILY #30 tablet Lisinopril [Zestril] 5 mg PO DAILY #30 tablet Home Medications: Glucosamine/D3/Boswellia Randa [Osteo Bi-Flex Tablet] 1 tab PO DAILY 01/09/17 [ History] Multivits,Ca,Min/Iron/FA/Lycop [Centrum Men's Tablet] 1 tab PO DAILY 01/09/17 [ History] [place]-3S/Dha/Epa/Fish Oil [Fish Oil [place]-3 Softgel] 1 cap PO DAILY 01/09/17 [ History] amLODIPine [Norvasc] 5 mg PO DAILY 01/09/17 [History] Aspirin [Lo-Dose Aspirin EC] 81 mg PO DAILY #30 tablet. 01/10/17 [Rx] Atorvastatin [Lipitor] 80 mg PO HS #60 tablet 01/10/17 [Rx] Clopidogrel [Plavix] 75 mg PO DAILY #30 tablet 01/10/17 [Rx] Lisinopril [Zestril] 5 mg PO DAILY #30 tablet 01/10/17 [Rx] Nitroglycerin 0.4 mg SL Q5MIN PRN #10 tab.subl 01/10/17 [Rx] amLODIPine [Norvasc] 5 mg PO DAILY #30 tablet 01/10/17 [Rx] Allergies/Adverse Reactions: Allergies Penicillins Allergy (Unknown, Verified 01/09/17 10:22) See Comments Patient has never taken penicillin- Patient has avoided this medication because all family members have an anaphylactic reaction- Procedures/tests Complete & Pending: Procedures Performed prior 72 hours Category Date Time Status ECG 12 lead ECG [ECG] Routine Y 01/09/17 21:36 Completed ECG 12 lead ECG [ECG] Stat Y 01/09/17 16:20 Completed Date of admission: 01/09/17 15:32 Primary care physician: PCP NO - Patient Status Disposition: Home, Self-Care Condition: Good Functional capacity at discharge: independent ambulation Overall status at discharge: patient is progressing back to baseline - Discharge Instructions Instructions: Lisinopril (By mouth), Aspirin (By mouth), Nitroglycerin, Rapid Release (By mouth), Atorvastatin (By mouth), Clopidogrel (By mouth), Myocardial Infarction (DC), Left Heart Catheterization (DC), How to Stop Smoking (DC), Coronary Intravascular Stent Placement (DC), Peripheral Vascular Disorders (DC) Follow Up With: NO,PCP [Primary Care Provider] - (Patient follows up with PCP in [facility]) Additional Instructions: Follow up in the local cardiology clinic in 1-2 weeks. Please check your blood pressure and heart rate twice daily (same time in the morning and evening), write down the numbers and bring record to doctor's appointment. Please wear JESSIKA hose during the day when at rest. Take breaks and ambulate on long trips. - Diet and Activity Activity: other (acute heart attack instructions) Diet: low fat, low cholesterol, low salt diet Interval History: Patient denies any chest pain, shortness of breath or syncope. He feels better and is eager to go home. Hospital course: Mr. Moses is a 76 year old male with past medical history of hyperlipidemia and hypertension who lives in [place] and was visiting his grandnieces in [place] when he developed sudden onset of chest pain. Initial troponin was 0.[address]-T changes. Patient underwent left heart catheterization with successful PTCA/drug-eluting stent to proximal LAD. He remained asymptomatic. His heart rate was in the 50s;therefore, Coreg was stopped. Lisinopril was increased to 5 mg daily for better control of his blood pressure. PLAN: home dose coreg was discontrinued due to sinus bradycardia. He was started on Plavix, aspirin, statin. follow up in the cardiology clinic in 1-2 weeks. - Time Spent with Patient Total time spent providing and/or coordinating discharge services: - Constitutional Vitals: Temp Pulse Resp BP Pulse Ox 98.2 F 55 18 130/78 98 01/10/17 08:02 01/10/17 09:26 01/10/17 08:02 01/10/17 08:02 01/10/17 09:26 General appearance: Present: cooperative, A&O X 3, pleasant, no acute distress, answers questions appropriately - Neck Neck exam general surgery: Present: supple, trachea midline. Absent: lymphadenopathy - Respiratory Respiratory exam: Present: CTAB - Cardiovascular Cardiovascular exam: Present: RRR - GI/Abdominal GI/Abdominal exam: Present: normal bowel sounds, soft. Absent: distended, tenderness - Extremities Exam Extremities exam: Absent: pedal edema - Back Exam Back exam: Absent: CVA tenderness (L), CVA tenderness (R) - Neurological Exam Neurological exam: Present: alert, oriented X3, no focal deficits, strengths equal and symetr throughout. Absent: facial droop, speech deficit - Skin Skin exam: Absent: rash
--- NOTE | 2017-01-10 12:42 | Electrocardiograph Report ---
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
--- NOTE | 2017-01-10 12:53 | Electrocardiograph Report ---
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
--- NOTE | 2017-01-10 12:55 | Electrocardiograph Report ---
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
== END 2017-01-10 13:22 | disposition home or self-care (01) | DRG 247 ==
LOC: EMEROO 08:15 → 2ANU 08:15 → 2NNU 14:58 → SUATTDRO 15:32
PROVIDERS: ADMIT Internal Medicine; ATTEND Internal Medicine